=== PATIENT | female | born 1950 ===

== ENCOUNTER 2018-10-03 08:15 | Emergency (ER) | payer OTHER ==
[~2018-10-03] VITALS: Ht 152.4 cm; Wt 80.7 kg
[~2018-10-03 08:15] MED LIST: GILTUSS LIQUID237 M1 PO; LEVSIN/SL0.125 MG SL; PROTONIX40 MG; ZANTAC150 MG PO
[2018-10-03] MEDS ORDERED: ZANTAC150 M3 PO (08:26)
[2018-10-03] MEDS ORDERED: LIPITOR20 MG PO (08:27)
[2018-10-03] MEDS ORDERED: COZAAR50 MG PO (08:27)
[2018-10-03] MEDS ORDERED: LOPERAMIDE2 M1 PO (08:27)
== END 2018-10-03 12:05 | disposition home or self-care (01) ==
LOC: ER 08:15
DX: K29.60 Other gastritis without bleeding (principal)